=== PATIENT | male | born 1990 | race Caucasian/White ===

== ENCOUNTER 2017-04-18 10:04 | Emergency (ER) | payer OTHER ==
[~2017-04-18] VITALS: Ht 185.4 cm; Wt 131.6 kg
[~2017-04-18 10:04] MED LIST: HYDR0.1S10 PO
[2017-04-18 10:08] VITALS: TEMP 36.7; Ht 185.4 cm; Wt 131.6 kg
--- NOTE | 2017-04-18 11:09 | DIAGNOSTIC IMAGING REPORT ---
RIGHT TIBIA AND FIBULA 2 VIEWS CLINICAL HISTORY: Right leg pain. FINDINGS: AP and lateral views of the right tibia and fibula are obtained. No prior studies are available for comparison at the time of dictation. The skeletal structures are well mineralized. No fracture is seen. The knee and ankle joints are grossly maintained. An os trigonum is incidentally noted. There is a distal pretibial soft tissue swelling. IMPRESSION: Pretibial soft tissue edema. No acute bony abnormality is identified. Electronically signed by: Ramez Reyes M.D. 04/18/2017 11:08 AM Dictated Date/Time: 04/18/2017 11:07 AM
--- NOTE | 2017-04-18 11:10 | DIAGNOSTIC IMAGING REPORT ---
RIGHT FOOT MIN 3 VIEWS ROUTINE CLINICAL HISTORY: Right foot pain COMPARISON: None. DISCUSSION: No fractures or dislocations are visualized. There are no erosive or destructive changes. IMPRESSION: No fractures, dislocations, or destructive lesions are visualized. Electronically signed by: Maurisio Garcia M.D. 04/18/2017 11:08 AM Dictated Date/Time: 04/18/2017 11:07 AM
--- NOTE | 2017-04-18 11:44 | DIAGNOSTIC IMAGING REPORT ---
ULTRASOUND RIGHT VENOUS DOPP LOWER EXT UNILAT CLINICAL HISTORY: Right leg pain COMPARISON STUDY: No previous studies for comparison. FINDINGS: Real-time and color flow Doppler imaging were performed. Flow was seen within the femoral, popliteal and calf veins with no intraluminal thrombus demonstrated. The saphenous vein is patent. IMPRESSION: No evidence of right lower extremity DVT. Electronically signed by: Maurisio Garcia M.D. 04/18/2017 11:42 AM Dictated Date/Time: 04/18/2017 11:42 AM
[2017-04-18 11:47] VITALS: BP 149/87; PULSE 95; O2SAT 99
[2017-04-18] MEDS ORDERED: LSN20 PO (11:52)
--- NOTE | 2017-04-18 11:58 | EMERGENCY ROOM VISIT NOTE ---
History First contact with patient: 10:14 Chief Complaint: FOOT PAIN Stated Complaint: RIGHT FOOT PAIN History of Present Illness The patient is a 27 year old male who presents to the Emergency Room via private vehicle with complaints of "Right foot pain". The patient states that in the past he had fractured the growth plate region. He states that this occurred likely 2002. He notes that over the winter, he noticed a bump on the top of his right foot. This was hard in nature. He states that recently with weightbearing of the right foot there is increased pain in the metatarsal region. He is to have an appointment in the near future with [facility]. He feels like something may have popped in the foot, when he walks and also notes a warm sensation radiating into his calf with a tingling sensation. He has been taking ibuprofen with relief of his pain. Review of Systems A complete 6-point Review of Systems was discussed with the patient, with pertinent positives and negatives listed in the History of Present Illness. All remaining Review of Systems questions can be considered negative unless otherwise specified. Past Medical/Surgical History Heart disease, high blood pressure, tonsil and adenoids Family History Diabetes, heart disease, high blood pressure, cancer, seizures. Social History Smoking Status: Never Smoker Social History: Patient lives at home with parents. Current/Historical Medications Scheduled Lisinopril (Lisinopril), 20 MG PO DAILY Allergies Coded Allergies: No Known Allergies (Unverified , 04/18/17) Physical Exam Vital Signs Date Time Temp Pulse Resp B/P (MAP) Pulse Ox O2 Delivery O2 Flow Rate FiO2 04/18/17 11:47 95 16 149/87 99 Room Air 04/18/17 10:08 36.7 97 18 178/80 98 Room Air Physical Exam VITAL SIGNS - Vital signs and nursing notes were reviewed. Patient is afebrile , hypertensive at 178/80, non-tachycardic and is saturating well on room air 98% . GENERAL -27-year-old male appearing his stated age who is in no acute distress. Communicates well with provider and answers questions appropriately. SKIN - Without rashes. Skin overlying the right foot and arizmendi is unremarkable. EXTREMITIES - No clubbing or peripheral cyanosis. No pretibial edema present. Minimal tenderness palpation overlying the foot and arizmendi. There is a small localized bump overlying the central lateral metatarsal. This is nonfluctuant. This appears to be a bony process. He is neurovascularly intact in this extremity. +5/5 strength noted in UE/LE bilaterally. Full range of motion of this region. Weightbearing of the region does increase pain. Medical Decision & Procedures ER Provider Diagnostic Interpretation: RIGHT FOOT MIN 3 VIEWS ROUTINE CLINICAL HISTORY: Right foot pain COMPARISON: None. DISCUSSION: No fractures or dislocations are visualized. There are no erosive or destructive changes. IMPRESSION: No fractures, dislocations, or destructive lesions are visualized. Electronically signed by: Maurisio Garcia M.D. 04/18/2017 11:08 AM Dictated Date/Time: 04/18/2017 11:07 AM ULTRASOUND RIGHT VENOUS DOPP LOWER EXT UNILAT CLINICAL HISTORY: Right leg pain COMPARISON STUDY: No previous studies for comparison. FINDINGS: Real-time and color flow Doppler imaging were performed. Flow was seen within the femoral, popliteal and calf veins with no intraluminal thrombus demonstrated. The saphenous vein is patent. IMPRESSION: No evidence of right lower extremity DVT. Electronically signed by: Maurisio Garcia M.D. 04/18/2017 11:42 AM Dictated Date/Time: 04/18/2017 11:42 AM RIGHT TIBIA AND FIBULA 2 VIEWS CLINICAL HISTORY: Right leg pain. FINDINGS: AP and lateral views of the right tibia and fibula are obtained. No prior studies are available for comparison at the time of dictation. The skeletal structures are well mineralized. No fracture is seen. The knee and ankle joints are grossly maintained. An os trigonum is incidentally noted. There is a distal pretibial soft tissue swelling. IMPRESSION: Pretibial soft tissue edema. No acute bony abnormality is identified. Electronically signed by: Ramez Reyes M.D. 04/18/2017 11:08 AM Dictated Date/Time: 04/18/2017 11:07 AM Medical Decision Patient was seen and evaluated as above. He presents to us today with right foot pain, and an odd sensation in the right calf region and there has been no known trauma recently. Radiographs were initiated. Ultrasound was also initiated. These were negative for acute process. I suspect the patient's small bump on the foot is likely a bony prominence. I do not suspect any concerning fracture at this time. No evidence of DVT. Patient was fitted with a postop shoe, and notes that he has crutches at home. He seemed happy with plan of care, was educated upon management today's findings, educated upon worrisome symptoms which to return, and was discharged home in good condition. I suspect the patient is likely experiencing either ligamentous strain, or has a small underlying occult fracture of which he is to follow-up regarding. In the evaluation and treatment of this patient, the following differential diagnoses were considered: Lisfranc Fracture, Talus Fracture, Tarsal Fracture, DVT, metatarsal fracture, Foot Sprain. Impression Primary Impression: Foot pain Departure Information Dispostion Home / Self-Care Condition GOOD Referrals Marc Cancino D.O. (PCP) Crow May D.O. Patient Instructions [facility] Additional Instructions You have been treated in the Emergency Department for right foot pain and leg pain. For pain control, you can use the following [id number] medicines: - Regular strength (325mg/tab) Tylenol (acetaminophen) 2 tabs every 4-6 hours as needed. Do not exceed 12 tablets in a 24 hour period. Avoid taking more than 3 grams (3000 mg) of Tylenol per day. This includes any other sources of acetaminophen you may take on a regular basis. - Regular strength (200 mg/tab) Advil (ibuprofen) 1-2 tabs every 4-6 hours as needed. Do not exceed a dose of 3200 mg per day. If this is a recent injury (<24 hrs), ice can be applied to the area of pain for the first 3 days to help decrease pain and inflammation. You have been provided the number for an Orthopaedic Surgeon. You should call this number as soon as possible to establish a follow-up visit from today's Emergency Department visit. Keep the ankle brace/splint in place until cleared by Orthopedics. Use the crutches you have to keep ALL weight off of the ankle until weight bearing is tolerable. Return to the Emergency Department if your current symptoms worsen despite treatment course outlined above, or if you develop any of the following symptoms : intractable pain despite aforementioned treatment course or new onset of numbness or tingling of the foot. Please return with any new/concerning symptoms.
== END 2017-04-18 12:15 | disposition home or self-care (01) ==
LOC: C.EDB 10:05 → C.EDC 12:15
DX: M79.671 Pain in right foot (principal); I51.9 Heart disease, unspecified; I10 Essential (primary) hypertension; Z83.3 Family history of diabetes mellitus; Z82.49 Family history of ischemic heart disease and other diseases of the circulatory system; Z80.9 Family history of malignant neoplasm, unspecified; Z79.899 Other long term (current) drug therapy

== ENCOUNTER → 2018-04-05 | Outpatient (CLI) | payer OTHER ==
[~2018-04-05] MED LIST changes: -HYDR0.1S10 PO; +LSN20 PO
== END | disposition home or self-care (01) ==
LOC: C.LAB 16:42
DX: J30.9 Allergic rhinitis, unspecified (principal)

== ENCOUNTER → 2018-06-19 | Outpatient (CLI) | payer OTHER ==
[~2018-06-19] MED LIST changes: +LISI-726 PO; -LSN20 PO
[2018-06-19 09:53] LABS: HEMATOCRIT 45.3 % (42-52); HEMOGLOBIN 15.3 g/dL (14.0-18.0); MEAN CELL VOLUME 82.4 fL (80-100); MEAN CORPUSCULAR HEMOGLOBIN 27.8 pg (25-34); MEAN CORPUSCULAR HGB CONC 33.8 g/dl (32-36); MEAN PLATELET VOLUME 9.3 fL (7.4-10.4); PLATELET COUNT 301 K/uL (130-400); RED CELL DISTRIBUTION WIDTH CV 13.5 % (11.5-14.5); RED CELL DISTRIBUTION WIDTH SD 40.9 fL (36.4-46.3); WHITE BLOOD COUNT 7.23 K/uL (4.8-10.8)
[2018-06-19 10:58] LABS: ALKALINE PHOSPHATASE 77 U/L (45-117); ALT/SGPT 56 U/L (12-78); AST/SGOT 28 U/L (15-37); BLOOD UREA NITROGEN 9 mg/dl (7-18); CALCIUM 9.3 mg/dl (8.5-10.1); CARBON DIOXIDE 27 mmol/L (21-32); CHOLESTEROL 157 mg/dl (0-200); CREATININE 0.94 mg/dl (0.60-1.40); GLUCOSE 112 mg/dl (70-99); LDL CHOLESTEROL (DIRECT) 105 mg/dl; SODIUM 138 mmol/L (136-145); TOTAL PROTEIN 7.8 gm/dl (6.4-8.2)
== END | disposition home or self-care (01) ==
LOC: C.LAB 08:49
PROVIDERS: ATTEND Family Medicine
DX: Z12.5 Encounter for screening for malignant neoplasm of prostate (principal); Z13.9 Encounter for screening, unspecified